=== PATIENT | female | born 1970 | race Caucasian/White ===

== ENCOUNTER 2016-08-25 01:53 | Emergency (ER) | payer OTHER ==
[~2016-08-25] VITALS: Ht 170.2 cm; Wt 62.6 kg
--- NOTE | 2016-08-25 02:18 | ED GI/GU/ABDOMINAL COMPLAINT ---
History of Present Illness General Chief Complaint: Abdominal Pain/Flank Pain Stated Complaint: ABD PAIN, +N Source: patient, family Exam Limitations: no limitations Vital Signs & Intake/Output Vital Signs & Intake/Output Vital Signs Date Time Temp Pulse Resp B/P Pulse O2 O2 Flow FiO2 Ox Delivery Rate 08/25 0646 98.4 89 18 94/53 97 Room Air 08/25 0206 96.9 73 18 117/76 98 Room Air Allergies Coded Allergies: No Known Allergies (08/25/16) Reconcile Medications No Known Home Medications Triage Note: MID ABD PAIN RADIATES AROUND INTO BACK ON BOTH SIDES, NAUSEA, NO VOMTING OR DIARRHEA Triage Nurses Notes Reviewed? yes ? N Is pt currently ? No Onset: Abrupt Duration: hour(s): (FEW) Timing: multiple episodes today Quality/Severity: sharpness, severe Severity Numbers: 10 Location: epigastric, left upper quadrant, right lower quadrant Radiation: back, LLQ, RLQ Activities at Onset: AFTER EATING HPI: This is a 46-year-old female who presents here with chief complaint of nausea, abdominal pain for the last several hours. Symptoms started after eating corn beef and cabbage that she had earlier from the cafeteria. No vomiting. She had one bowel movement which she said was close to diarrhea. No blood in the stool. Her ate the same food without any symptoms. She missed her 1 glass of wine tonight. She has been recently ill with URI symptoms and some sinus pressure but never had abdominal pain until tonight. Menstruation is irregular patient denies chance of . She denies any urinary symptoms. History of previous appendectomy. (GAETANO CONNOLLY,MONICA) Past History Travel History Traveled to [place] past 21 day No Medical History Any Pertinent Medical History? see below for history Neurological: NONE EENT: NONE Cardiovascular: NONE Respiratory: NONE Gastrointestinal: NONE Hepatic: NONE Renal: NONE Musculoskeletal: NONE Psychiatric: NONE Endocrine: NONE Blood Disorders: NONE Cancer(s): NONE Surgical History Surgical History: appendectomy Psychosocial History Who do you live with Spouse Services at Home None What is your primary language Upper Sorbian Tobacco Use: Never used ETOH Use: occasional use Family History Hx Contributory? No (GAETANO CONNOLLY,MONICA) Review of Systems Review of Systems Constitutional: Denies: chills, fever. EENTM: Reports: no symptoms. Respiratory: Denies: cough, short of breath. Cardiovascular: Denies: chest pain, palpitations. GI: Reports: abdominal pain, diarrhea, nausea. Denies: vomiting. Genitourinary: Reports: no symptoms. Musculoskeletal: Reports: no symptoms. Skin: Reports: no symptoms. Neurological/Psychological: Reports: no symptoms. Hematologic/Endocrine: Denies: bruising, bleeding, polyuria, polydipsia. Immunologic/Allergic: Denies: splenectomy. All Other Systems: Reviewed and Negative (MONICA JIMENEZ MD) Physical Exam Physical Exam General Appearance: well developed/nourished, alert, awake, moderate distress Head: atraumatic, normal appearance Eyes: Bilateral: normal appearance, PERRL, EOMI. Ears, Nose, Throat, Mouth: hearing grossly normal, moist mucous membrane Neck: normal inspection, supple, normal alignment Respiratory: normal breath sounds, chest non-tender, no respiratory distress Cardiovascular: regular rate/rhythm Peripheral Pulses: 2+ radial (R), 2+ radial (L) Gastrointestinal: normal bowel sounds, soft, tenderness (EPIGASTRIC/RUQ/LUQ), NO REBOUND OR GUARDING Extremities: normal range of motion Neurologic/Psych: no motor/sensory deficits, awake, alert, oriented x 3, normal gait Skin: intact, normal color, warm/dry Core Measures ACS in differential dx? No Severe Sepsis Present: No Septic Shock Present: No (MONICA JIMENEZ MD) Progress Differential Diagnosis: cholecystitis, pancreatitis, peptic ulcer, PUD/GERD, perforated viscous, SBO Plan of Care: Orders Procedure Date/time Status Add-on Test (ER Only) 08/25 0300 Active TROPONIN LEVEL 08/25 0235 Complete EKG 08/25 224 Active URINALYSIS 08/26 223 Complete LIPASE 08/26 223 Complete LACTIC ACID 08/26 223 Complete HUMAN BETA HCG SCREEN 08/26 223 Complete COMPREHENSIVE METABOLIC PANEL 08/26 223 Complete CBC WITHOUT DIFFERENTIAL 08/26 223 Complete Laboratory Tests 08/25/16 0642: Urinalysis HEAVY H, Urine Color YEL, Urine Clarity HAZY H, Urine pH 6.0, Ur Specific [place] >= 1.030, Urine Protein TRACE H, Urine Ketones NEG, Urine Nitrite NEG, Urine Bilirubin NEG, Urine Urobilinogen 0.2, Ur Leukocyte Esterase NEG, Ur Microscopic SEDIMENT EXAMINED, Urine RBC 1-3, Urine WBC 1-3 H, Ur Epithelial Cells FEW, Urine Bacteria MOD H, Urine Mucus MOD H, Urine Hemoglobin SMALL H, Urine Glucose NEG 08/25/16 0524: Lactic Acid Cancelled 08/25/16 0235: Anion Gap 10, Estimated GFR > 60, BUN/Creatinine Ratio 18.8, Glucose 106 H, Lactic Acid 0.7, Calcium 9.5, Total Bilirubin 0.7, AST 14, ALT 27, Alkaline Phosphatase 55, Troponin I < 0.01, Total Protein 7.2, Albumin 4.1, Globulin 3.1, Albumin/Globulin Ratio 1.3, Lipase 80, Total Beta HCG NEGATIVE, CBC w Diff NO MAN DIFF REQ, RBC 3.74 L, MCV 97.3, MCH 32.8 H, RDW 12.8, MPV 7.8, Gran % 74.5 , Lymphocytes % 15.4 L, Monocytes % 7.3, Eosinophils % 1.9, Basophils % 0.9, Absolute Granulocytes 8.0 H, Absolute Lymphocytes 1.6, Absolute Monocytes 0.8 H, Absolute Eosinophils 0.2, Absolute Basophils 0.1, PUBS MCHC 33.7 Diagnostic Imaging: Viewed by Me: Ultrasound. Discussed w/RAD: Ultrasound. Initial ED EKG: NSR, poor R-wave progression Prior EKG: unchanged Hand-Off Endorsed To: LUIGI EGAN MD Endorsed Time: 0700 Pending: ultrasound (GAETANO CONNOLLY,MONICA) Radiology Impression: PATIENT: SHANNON AWAN PRESENT AGE: 46 PATIENT ACCOUNT NO: [id number] : 71 LOCATION: [facility] ORDERING PHYSICIAN: MONICA JIMENEZ MD SERVICE DATE: 08/25/16 EXAM TYPE: US - US-LIMITED ABDOMEN EXAMINATION: US ABDOMEN LIMITED CLINICAL INFORMATION: Right upper quadrant/epigastric pain after eating. Evaluate for gallstones.. COMPARISON: Previous ultrasound June [address] scan February 2010 TECHNIQUE: Real-time imaging of the right upper quadrant abdominal viscera. FINDINGS: PANCREAS: The head and body of the pancreas are normal. The tail is not well visualized due to bowel gas. LIVER: Normal. The liver demonstrates normal size, contour and echogenicity. No focal lesion or intrahepatic biliary duct dilatation. GALLBLADDER: The gallbladder is contracted. No gallstones are seen. The gallbladder wall does not appear thickened. There is no pericholecystic fluid. COMMON BILE DUCT: Normal in caliber measuring 0.2 cm in diameter. RIGHT KIDNEY: Normal. No hydronephrosis. No renal calculi or focal parenchymal lesions. The kidney measures 11 cm in maximum dimension. FREE FLUID: None. IMPRESSION: Contracted gallbladder. No gallstone seen. Limited visualization of the tail of the pancreas. DICTATED BY: ZANA BUTTERFIELD MD DATE/TIME DICTATED:08/25/16814 CASUALTY CLAIM ADJUSTER:STEPHANI DATE/TIME TRANSCRIBED:08/25/16814 CONFIDENTIAL, DO NOT COPY WITHOUT APPROPRIATE AUTHORIZATION. <Electronically signed in Other Vendor System> SIGNED BY: ZANA BUTTERFIELD MD 08/25/1621 Comments: 08/25/2016 8:56:16 AM patient signed out to me by Dr. iJmenez shift discovery manager. Patient is feeling more comfortable at this point and she is tolerating clear liquids. Her evaluation is unrevealing as to the underlying cause of her pain but I suspect it is gastrointestinal in origin and related to what she ate. The patient is describing abdominal pain that frames the left side of the abdomen and the epigastric region on the right side of the abdomen. She is more or less diffusely tender without rebound or guarding and bowel sounds are normal on my examination. I feel she is stable for outpatient management via her primary care physician. (HEYDI CONNOLLY,LUIGI Kiran) Departure Departure Condition: Stable Referrals: CHEL TURNER DO (PCP/Family) Departure Forms: Customer Survey General Discharge Information Prescriptions: Current Visit Scripts No Known Home Medications (GAETANO CONNOLLY,MONICA) Departure Disposition: HOME OR SELF CARE Clinical Impression Primary Impression: Abdominal pain Qualifiers: Abdominal location: generalized Qualified Code: R10.84 - Generalized abdominal pain Additional Instructions: Zofran as needed for nausea or vomiting. Percocet as needed for pain. Follow- up with your primary care physician on Saturday for reevaluation unless your symptoms have resolved completely. Since the cause of your abdominal pain and symptoms is unclear at this point, please Return to the emergency department immediately if fever, uncontrolled pain, vomiting or other concerns or worsening. Please note that there might be incidental findings in your evaluation that are unrelated to the current emergency department visit. Please notify your primary care doctor about this emergency department visit in order to obtain and review all of the testing performed so that these incidental findings can be monitored as needed. If you had an x-ray performed, please understand that some fractures may not be seen on the initial set of x-rays. If your symptoms persist you might need a repeat set of x-rays to check for such a fracture. If you had a laceration evaluated, please understand that foreign bodies such as glass or wood may not be visible to the naked eye or on plain x-rays. If the wound becomes red, swollen, increasingly more painful or if there is any drainage from the wound, please have it reevaluated by a physician for the possibility of a retained foreign body. Thank you for choosing the [facility] Emergency Department for your care. It was a pleasure to serve you today. Luigi Egan M.D. [facility] (HEYDI CONNOLLY,LUIGI Kiran)
[2016-08-25 02:50] LABS: ABSOLUTE BASOPHIL COUNT 0.1 /CUMM (0.0-0.2); ABSOLUTE EOSINOPHIL COUNT 0.2 /CUMM (0.0-0.7); ABSOLUTE LYMPH COUNT 1.6 /CUMM (1.2-3.4); ABSOLUTE MONOCYTE COUNT 0.8 /CUMM (0.10-0.60); BASOPHIL % 0.9 % (0.0-2.0); EOSINOPHIL % 1.9 % (0-5); HEMATOCRIT 36.4 % (37-47); MEAN CORPUSCULAR HGB 32.8 PG (27.0-31.0); MEAN CORPUSCULAR HGB CONC 33.7 G/DL (33.0-37.0); MEAN CORPUSCULAR VOLUME 97.3 FL (81.0-99.0); MEAN PLATELET VOLUME 7.8 FL (7.4-10.4); PLATELET COUNT 319 /CUMM (130-400); RBC DISTRIBUTION WIDTH 12.8 % (11.5-14.5); RED BLOOD CELL CT 3.74 /CUMM (4.20-5.40); WHITE BLOOD CELL COUNT 10.7 /CUMM (4.8-10.8)
[2016-08-25 02:51] LABS: GRANULOCYTE % 74.5 % (42.2-75.2)
[2016-08-25 06:46] VITALS: BP 94/53
--- NOTE | 2016-08-25 08:21 | ULTRASOUND REPORT ---
EXAMINATION: US ABDOMEN LIMITED CLINICAL INFORMATION: Right upper quadrant/epigastric pain after eating. Evaluate for gallstones.. COMPARISON: Previous ultrasound June [address] scan February 2010 TECHNIQUE: Real-time imaging of the right upper quadrant abdominal viscera. FINDINGS: PANCREAS: The head and body of the pancreas are normal. The tail is not well visualized due to bowel gas. LIVER: Normal. The liver demonstrates normal size, contour and echogenicity. No focal lesion or intrahepatic biliary duct dilatation. GALLBLADDER: The gallbladder is contracted. No gallstones are seen. The gallbladder wall does not appear thickened. There is no pericholecystic fluid. COMMON BILE DUCT: Normal in caliber measuring 0.2 cm in diameter. RIGHT KIDNEY: Normal. No hydronephrosis. No renal calculi or focal parenchymal lesions. The kidney measures 11 cm in maximum dimension. FREE FLUID: None. IMPRESSION: Contracted gallbladder. No gallstone seen. Limited visualization of the tail of the pancreas.
[2016-08-25] MEDS ORDERED: ZOFRAN ODT4 M1 SL (09:01)
[2016-08-25] MEDS ORDERED: NORCO 5-325 TA1 EACH PO (09:01)
== END 2016-08-25 09:24 ==
LOC: ERH 01:53
PROVIDERS: Emergency Medicine
DX: R10.13 Epigastric pain (principal); R10.11 Right upper quadrant pain; R10.12 Left upper quadrant pain
CPT/HCPCS: 81001; 93005; 93010; 96361; 96374; 96375; J1885; J2405; J2765

== ENCOUNTER 2016-08-26 11:25 | Emergency (ER) | payer OTHER ==
[~2016-08-26] VITALS: Ht 170.2 cm; Wt 62.6 kg
[~2016-08-26 11:25] MED LIST: NORCO 5-325 TA1 EACH PO; ZOFRAN ODT4 M1 SL
--- NOTE | 2016-08-26 11:41 | ED GI/GU/ABDOMINAL COMPLAINT ---
History of Present Illness General Chief Complaint: Abdominal Pain/Flank Pain Stated Complaint: ABD PAIN Source: patient, family, old records Exam Limitations: no limitations Allergies Coded Allergies: No Known Allergies (08/25/16) Reconcile Medications Hydrocodone/Acetaminophen (Rhodes 5-325 Tablet) 5 MG-325 MG TABLET 1-2 TAB PO Q6P PRN PAIN Ondansetron (Zofran Odt) 4 MG TAB.RAPDIS 1 TAB SL Q6P PRN NAUSEA/VOMITING Triage Note: TRIAGE: 46 Y/O FEMALE RETURNS AFTER DISCHARGE FROM DEPARTMENT YESTERDAY FOR C/O MID ABDOMINAL PAIN 10/17. PATIENT REPORTS THAT HER CALLED AHEAD ADN SPOKE TO DR EGAN AND THAT HE PLANS TO DO A CT SCAN TODAY. Triage Nurses Notes Reviewed? yes ? n Is pt currently ? No Onset: Abrupt Duration: day(s): (2), constant Timing: recent history Quality/Severity: aching, cramping Severity Numbers: 7 Location: generalized abdomen Radiation: no radiation Activities at Onset: eating Prior Abdominal Problems: none Modifying Factors: Worsens With: eating. Associated Symptoms: denies HPI: 46-year-old female with history of appendectomy in the past presents emergency room complaining of persistent nonradiating cramping aching 6 out of 10 generalized abdominal pain has been present for the past 2 days. She was seen here yesterday morning for the same. Symptoms came on after eating corn beef and cabbage. There is no sick contacts with similar symptoms. The patient had an unremarkable workup here and was discharged home with pain medication and Zofran. She states the pain medicine is making her drowsy are not helping with the pain or H she denies fevers or chills however reports positive diaphoresis. No back pain urinary symptoms chest pain shortness of breath. No nausea vomiting or diarrhea no black or bloody stools. she reports to poor appetite since symptoms began. (AYANNA MACIEL) Vital Signs & Intake/Output Vital Signs & Intake/Output Vital Signs Date Time Temp Pulse Resp B/P Pulse O2 O2 Flow FiO2 Ox Delivery Rate 08/26 1347 98.1 79 16 105/54 97 Room Air 08/26 1129 98.4 97 18 97/60 99 Room Air Room Air Past History Travel History Traveled to [place] past 21 day No Medical History Any Pertinent Medical History? none Neurological: NONE EENT: NONE Cardiovascular: NONE Respiratory: NONE Gastrointestinal: NONE Hepatic: NONE Renal: NONE Musculoskeletal: NONE Psychiatric: NONE Endocrine: NONE Blood Disorders: NONE Cancer(s): NONE Surgical History Surgical History: appendectomy Psychosocial History Who do you live with Spouse Services at Home None What is your primary language Latvian Tobacco Use: Never used ETOH Use: occasional use Illicit Drug Use: denies illicit drug use Family History Hx Contributory? Yes (AYANNA MACIEL) Review of Systems Review of Systems Constitutional: Reports: see HPI. All Other Systems: Reviewed and Negative Comments Review of systems: See HPI, All other systems negative. Constitutional, no chills no fever, no malaise HEENT: No visual changes no sore throat no congestion Cardiovascular: No chest pain , no palpitation , Skin, no jaundice no rashes, no change in skin Respiratory: No dyspnea no cough no sputum GI: No nausea no vomiting, no diarrhea : No dysuria Muscle skeletal: No joint pain no back pain, no neck pain, Neurologic: No numbness , no headache Psych: No stress Heme/endocrine: No bruising no bleeding Immunology: No lymphadenopathy, (AYANNA MACIEL) Physical Exam Physical Exam General Appearance: well developed/nourished, no apparent distress, alert, awake Gastrointestinal: soft, tenderness (generalized) Comments: Well-developed well-nourished person in no acute distress HEENT: Normal EENT exam; PERRL, EOMI. HEAD is atraumatic. moist mucous membranes. Neck: Supple, normal range of motion Back: Nontender, no CVA tenderness. Full range of motion Cardiovascular: Regular rate and rhythms no murmurs rubs Respiratory: No respiratory distress. Patient speaking in full complete sentences. Breath sounds clear to auscultation bilaterally: NO W/R/R Abdomen: Soft, generalized abdominal wall tenderness negative Cantu sign nondistended, no appreciable organomegaly. Normal bowel sounds. No rebound/ guarding, No appreciable enlargement of the abdominal aorta, No ascites. Extremity: No edema, full range of motion of extremities, Neuro: Alert oriented x3, motor sensory normal,There were no obvious focal neurologic abnormalities. Skin: No appreciable rash on exposed skin, skin is warm and dry. No jaundice Psych: Mood and affect is normal, memory and judgment is normal. Core Measures ACS in differential dx? No Severe Sepsis Present: No Septic Shock Present: No (AYANNA MACIEL) Progress Differential Diagnosis: AAA, biliary colic, bowel obstruction, colon cancer, diverticulitis, gastritis, hepatitis, hernia, ischemic bowel, inflamm bowel dis, kidney stone, pancreatitis, peptic ulcer, PUD/GERD, perforated viscous, SBO Diagnostic Imaging: Viewed by Me: CT Scan. Discussed w/RAD: CT Scan. Radiology Impression: PRESENT AGE: 46 PATIENT ACCOUNT NO: [id number] : 71 LOCATION: [facility] ORDERING PHYSICIAN: AYANNA GARVEY SERVICE DATE: 08/26/161151 EXAM TYPE: CAT - CT ABD & PELVIS W IV CONTRAST EXAMINATION: CT ABDOMEN AND PELVIS WITH CONTRAST CLINICAL INFORMATION: Pancreatitis. Pain. COMPARISON: Ultrasound previous day. TECHNIQUE: Multidetector volumetric imaging was performed of the abdomen and pelvis before and after the IV administration of 100 mL of Omnipaque 300 intravenous contrast. Sagittal and coronal reformatted images were obtained on the technologist's workstation. DLP: 274 mGy-cm. FINDINGS: LUNG BASES: Minor discoid atelectasis, right lung base. LIVER, GALLBLADDER, AND BILIARY TREE: Liver morphology normal. Low-density lesion within segment 6 is progressive since baseline measuring up to 8 x 7 mm. No definite enhancing component. No other focal abnormality. The gallbladder is unremarkable with no evidence of radiopaque gallstones, gallbladder wall thickening, or obvious pericholecystic inflammatory changes. PANCREAS: Minimal peripancreatic haziness around the pancreatic head and body suspicious for minimal uncomplicated pancreatitis. Pancreatic duct normal. No fluid collection. SPLEEN: Unremarkable. ADRENAL GLANDS: Unremarkable. KIDNEYS AND URETERS: The kidneys are normal in size, shape, and attenuation. No hydronephrosis, hydroureter, or calculi seen. No perinephric stranding. BLADDER: Decompressed and difficult to assess. GASTROINTESTINAL TRACT: Staple line within the right lower quadrant presumably related to previous surgery. Debris filled presumably duodenal diverticulum distal second portion extending medially adjacent to the pancreatic head measuring nearly 4 cm. ABDOMINAL WALL: No significant hernia is appreciated. LYMPH NODES: Normal. VASCULAR: Unremarkable. PELVIC VISCERA: Unremarkable. OSSEOUS STRUCTURES: Unremarkable. IMPRESSION: 1. Minimal haziness around the pancreas suspicious from minimal pancreatitis. Correlate clinically. 2. 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 3. No acute bowel pathology. 4. Postsurgical changes within the right pelvis. 5. Enlarging 8 mm low-density right lobe hepatic lesion. Recommend elective MRI to determine whether this is solid or cystic. DICTATED BY: FLORENTINO CHRISTOPHER MD DATE/TIME DICTATED:08/26/161341 FRAMING SPECIALIST:STEPHANI DATE/TIME TRANSCRIBED:1341 CONFIDENTIAL, DO NOT COPY WITHOUT APPROPRIATE AUTHORIZATION. < Electronically signed in Other Vendor System> SIGNED BY: FLORENTINO CHRISTOPHER MD 1418 Initial ED EKG: none (AYANNA MACIEL) Plan of Care: Orders Procedure Date/time Status Saline Lock 08/26 115 Active LIPASE 08/26 115 Complete LACTIC ACID 08/26 115 Complete COMPREHENSIVE METABOLIC PANEL 08/27 1151 Complete CBC WITHOUT DIFFERENTIAL 08/27 1151 Complete AMYLASE 08/27 1151 Complete Laboratory Tests 08/26/16 1452: Lactic Acid Cancelled 08/26/16 1205: Anion Gap 7, Estimated GFR > 60, BUN/Creatinine Ratio 11.3, Glucose 85, Lactic Acid 1.1, Calcium 9.0, Total Bilirubin 0.9, AST 15, ALT 30, Alkaline Phosphatase 64, Total Protein 6.2 L, Albumin 3.4 L, Globulin 2.8, Albumin/Globulin Ratio 1.2, Amylase 81, Lipase 352 H, CBC w Diff MAN DIFF ORDERED, RBC 3.55 L, MCV 96.7, MCH 32.9 H, RDW 12.5, MPV 7.9, Gran % 84.6 H, Lymphocytes % 9.5 L, Monocytes % 5.5, Eosinophils % 0.1, Basophils % 0.3, Absolute Granulocytes 10.0 H, Segmented Neutrophils 69, Band Neutrophils 14 H, Absolute Lymphocytes 1.1 L , Lymphocytes 14 L, Monocytes 2, Absolute Monocytes 0.7 H, Eosinophils 1, Absolute Eosinophils 0, Absolute Basophils 0, Normocytic RBCs VERIFIED, Normochromic RBCs VERIFIED, PUBS MCHC 34.0 Labs ordered old records reviewed patient resting in no apparent distress medicated Toradol 30 Pepcid 20 IV IV fluids case discussed with Dr. Egan who will evaluate patient as he saw the patient yesterday Old records reviewed patient noted to be hypotensive here however old records show patient's blood pressure 94/53 last visit , mentating well Ultrasound 08/25: IMPRESSION: Contracted gallbladder. No gallstone seen. Limited visualization of the tail of the pancreas. 08/26/2016 1:04:48 PM discussed with patient at length all her lab results she states pain is still present Dilaudid 0.5 mg IV ordered pending CAT scan 08/26/2016 3:02:55 PM patient has had no episodes of vomiting here pain is slightly improved with Dilaudid here and discussed with and had a long conversation with the patient and her family regarding her CAT scan findings and incidental findings hepatic lesion diverticulosis. I had a long discussion with the patient and offered and recommended admission given she has technically failed outpatient treatment bland diet clear liquids pain medicine. Both the patient and her however would feel more comfortable with going home. I stressed with him need for close follow-up with her primary care physician in 24 hours, as well as GI information is provided for Dr. Gonzalez for close follow-up regarding these findings on CAT scan today. A copy of all her labs and CAT scan report and ultrasound report provided to the patient she'll return anytime sooner if her symptoms worsen I answered all their questions they feel comfortable with this plan I discussed with the patient at length all of their results. I had an extensive conversation regarding need for close follow up with their primary care physician this week as well as return precautions. I answered all of their questions, they feel comfortable with the plan and follow-up care. The patient states that she has enough of the Vicodin at home and is declining anything else for pain to go home with (AYANNA MACIEL) Departure Departure Time of Disposition: 1444 Disposition: HOME OR SELF CARE Condition: Stable Clinical Impression Primary Impression: Pancreatitis Secondary Impressions: Diverticulosis, Hepatic cyst Referrals: VINCENZO CONNOLLY,CHEL UJAREZ DO (PCP/Family) Additional Instructions: Bowel rest. Clear liquid diet as discussed, advance diet as tolerated to bland diet. Follow-up with your primary care physician as well as grey tender Dr. Gonzalez tomorrow. Continue taking her pain medication as prescribed. Return immediately if he have persistent or worsening pain despite medication develops fever chills vomiting diarrhea or any other concerns Departure Forms: Customer Survey General Discharge Information (AYANNA MACIEL) PA/FISHER EEL SPEAR Co-Sign Statement Statement: ED Attending supervision documentation- [] I saw and evaluated the patient. I have also reviewed all the pertinent lab results and diagnostic results. I agree with the findings and the plan of care as documented in the PA's/FISHER EEL SPEAR's documentation. [] I have reviewed the ED Record and agree with the PA's/FISHER EEL SPEAR's documentation. [] Additions or exceptions (if any) to the PAs/FISHER EEL SPEAR's note and plan are summarized below: [] (HEYDI CONNOLLY,TULIO Kiran)
[2016-08-26 12:22] LABS: ABSOLUTE BASOPHIL COUNT 0 /CUMM (0.0-0.2); ABSOLUTE EOSINOPHIL COUNT 0 /CUMM (0.0-0.7); ABSOLUTE LYMPH COUNT 1.1 /CUMM (1.2-3.4); ABSOLUTE MONOCYTE COUNT 0.7 /CUMM (0.10-0.60); BASOPHIL % 0.3 % (0.0-2.0); EOSINOPHIL % 0.1 % (0-5); GRANULOCYTE % 84.6 % (42.2-75.2); HEMATOCRIT 34.3 % (37-47); MEAN CORPUSCULAR HGB 32.9 PG (27.0-31.0); MEAN CORPUSCULAR VOLUME 96.7 FL (81.0-99.0); MEAN PLATELET VOLUME 7.9 FL (7.4-10.4); PLATELET COUNT 261 /CUMM (130-400); RBC DISTRIBUTION WIDTH 12.5 % (11.5-14.5); RED BLOOD CELL CT 3.55 /CUMM (4.20-5.40); WHITE BLOOD CELL COUNT 11.8 /CUMM (4.8-10.8)
[2016-08-26 13:47] VITALS: BP 105/54
--- NOTE | 2016-08-26 14:18 | CT SCAN REPORT ---
EXAMINATION: CT ABDOMEN AND PELVIS WITH CONTRAST CLINICAL INFORMATION: Pancreatitis. Pain. COMPARISON: Ultrasound previous day. TECHNIQUE: Multidetector volumetric imaging was performed of the abdomen and pelvis before and after the IV administration of 100 mL of Omnipaque 300 intravenous contrast. Sagittal and coronal reformatted images were obtained on the technologist's workstation. DLP: 274 mGy-cm. FINDINGS: LUNG BASES: Minor discoid atelectasis, right lung base. LIVER, GALLBLADDER, AND BILIARY TREE: Liver morphology normal. Low-density lesion within segment 6 is progressive since baseline measuring up to 8 x 7 mm. No definite enhancing component. No other focal abnormality. The gallbladder is unremarkable with no evidence of radiopaque gallstones, gallbladder wall thickening, or obvious pericholecystic inflammatory changes. PANCREAS: Minimal peripancreatic haziness around the pancreatic head and body suspicious for minimal uncomplicated pancreatitis. Pancreatic duct normal. No fluid collection. SPLEEN: Unremarkable. ADRENAL GLANDS: Unremarkable. KIDNEYS AND URETERS: The kidneys are normal in size, shape, and attenuation. No hydronephrosis, hydroureter, or calculi seen. No perinephric stranding. BLADDER: Decompressed and difficult to assess. GASTROINTESTINAL TRACT: Staple line within the right lower quadrant presumably related to previous surgery. Debris filled presumably duodenal diverticulum distal second portion extending medially adjacent to the pancreatic head measuring nearly 4 cm. ABDOMINAL WALL: No significant hernia is appreciated. LYMPH NODES: Normal. VASCULAR: Unremarkable. PELVIC VISCERA: Unremarkable. OSSEOUS STRUCTURES: Unremarkable. IMPRESSION: 1. Minimal haziness around the pancreas suspicious from minimal pancreatitis. Correlate clinically. 2. 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 3. No acute bowel pathology. 4. Postsurgical changes within the right pelvis. 5. Enlarging 8 mm low-density right lobe hepatic lesion. Recommend elective MRI to determine whether this is solid or cystic.
== END 2016-08-26 15:01 ==
LOC: ERH 11:25
PROVIDERS: Physician Assistant Medical
DX: K85.90 Acute pancreatitis without necrosis or infection, unspecified (principal); K57.90 Diverticulosis of intestine, part unspecified, without perforation or abscess without bleeding; K76.89 Other specified diseases of liver
CPT/HCPCS: 74177; 96374; 96375; 96376; J1885; J7040